=== PATIENT | male | born 1960 | race American Indian/Alaskan Native ===

== ENCOUNTER 2020-08-05 13:10 | Emergency (ER) | payer MEDICAID ==
[2020-08-05 13:28] VITALS: BP 141/64
--- NOTE | 2020-08-05 14:18 | Emergency Department Report ---
ED Animal Bite HPI - General Chief Complaint: Animal Bite Stated Complaint: DOG BITE Time Seen by Provider: 08/05/20 14:01 Source: patient Mode of arrival: Ambulatory Limitations: No Limitations - History of Present Illness Initial Comments: 60-year-old -[place] male presents to the emergency room stating that he has a dog bite to his left neck and under his left axillary that happened today. Patient states that the dog belongs to him but is not up-to-date with his vaccinations. Patient reports that his dog is not sick he does not mingle with other dogs outside the family. States that this was a provoked attack as he was trying to dislodge a foreign body in his dog's mouth as his dog was choking. Patient states that he tried doing the Heimlich maneuver and then he was given back blows between his shoulder blades when the dog bit him. Patient states that he did notify animal control they have the dog and is holding him for quarantine for 10 days. Patient reports that he would like his dog back. He denies any trouble breathing no trouble swallowing no chest pain. MD Complaint: animal bite -: This morning Location: neck, back Animal: dog Animal Control Notified: Yes Description: household pet, appeared well Mechanism: bite Severity scale (0 -10): 6 Context: provoked Associated Symptoms: erythema. denies: discharge from wound, bleeding, fever, chills, loss of consciousness, cough, headache, shortness of breath Treatments Prior to Arrival: wound dressing(s) - Related Data Patient Tet[facility] U[facility]: Yes ([facility]) Previous Rx's Medication Instructions Recorded Last Taken Type Amoxicillin/K Clav Tab [Augmentin 1 tab PO Q12HR 7 Days #14 tab 08/05/20 Unknown Rx 875 mg] Ibuprofen [Motrin 600 MG tab] 600 mg PO Q8H PRN #15 tablet 08/05/20 Unknown Rx Allergies Allergy/AdvReac Type Severity Reaction Status Date / Time No Known Allergies Allergy Unverified 08/05/20 13:21 ED Review of Systems ROS: Stated complaint: DOG BITE Other details as noted in HPI Comment: All other systems reviewed and negative ED Past Medical Hx - Past Medical History Previous Medical History?: No - Surgical History Past Surgical History?: No - Medications Home Medications: Home Medications Medication Instructions Recorded Confirmed Last Taken Type Amoxicillin/K Clav Tab [Augmentin 1 tab PO Q12HR 7 Days #14 tab 08/05/20 Unknown Rx 875 mg] Ibuprofen [Motrin 600 MG tab] 600 mg PO Q8H PRN #15 tablet 08/05/20 Unknown Rx ED Physical Exam - General Limitations: No Limitations General appearance: alert, in no apparent distress - Head Head exam: Present: atraumatic, normocephalic - Eye Eye exam: Present: normal appearance - ENT ENT exam: Present: mucous membranes moist - Neck Neck exam: Present: tenderness, full ROM - Respiratory Respiratory exam: Present: normal lung sounds bilaterally. Absent: chest wall t enderness - Cardiovascular Cardiovascular Exam: Present: regular rate - Extremities Exam Extremities exam: Present: normal inspection - Back Exam Back exam: Present: normal inspection - Neurological Exam Neurological exam: Present: alert, oriented X3, normal gait - Psychiatric Psychiatric exam: Present: normal affect, normal mood - Expanded Skin Exam Expanded Type of lesion: Present: bite/sting Distribution of rash: other (Left lateral inferior axillary bite sunshine puncture wound erythematous) Description of rash: Present: tenderness, erythematous, other (Under left side of chin puncture wound bleeding controlled mild tenderness) ED Course Vital Signs 08/05/20 13:25 Temperature 98.2 F Pulse Rate 66 Respiratory 16 Rate Blood Pressure 141/64 O2 Sat by Pulse 97 Oximetry Critical care attestation.: If time is entered above; I have spent that time in minutes in the direct care of this critically ill patient, excluding procedure time. ED Disposition Clinical Impression: Dog bite Qualifiers: Encounter type: initial encounter Qualified Code(s): W54.0XXA - Bitten by dog, initial encounter Disposition: DC- TO HOME OR SELFCARE Is pt being admited?: No Does the pt Need Aspirin: No Condition: Stable Instructions: Animal Bite, Adult, [id number] Additional Instructions: Complete antibiotics as prescribed. Pain medication as needed. Keep wound clean and dry. You can place triple antibiotic cream to your wounds. Return back to the emergency room if you develop a fever chills swelling purulent discharge from wound. Prescriptions: Amoxicillin/K Clav Tab [Augmentin 875 mg] 1 tab PO Q12HR 7 Days #14 tab Ibuprofen [Motrin 600 MG tab] 600 mg PO Q8H PRN #15 tablet PRN Reason: Pain Referrals: [facility] [Outside] - 3-5 Days
== END 2020-08-05 15:58 | disposition home or self-care (01) ==
LOC: ED 13:10
DX: S11.95XA Open bite of unspecified part of neck, initial encounter (principal); S41.152A Open bite of left upper arm, initial encounter; Z79.1 Long term (current) use of non-steroidal anti-inflammatories (NSAID); Z79.2 Long term (current) use of antibiotics; W54.0XXA Bitten by dog, initial encounter; Y93.89 Activity, other specified; Y92.89 Other specified places as the place of occurrence of the external cause; Y99.8 Other external cause status
CPT/HCPCS: 99281